=== PATIENT | male | born 1970 | race Caucasian/White ===

== ENCOUNTER 2024-03-04 02:16 | Emergency (ER) | payer MEDICAID, SELFPAY ==
--- NOTE | ~2024-03-04 | XR_ITS ---
Portable chest x-ray Comparison: None Clinical History: Chest pain Findings: There is retrocardiac consolidation. Right lung clear. Possible COPD. Cardiomediastinal s ilhouette is unremarkable. Bones and soft tissues are unremarkable. Impression: Left lower lobe pneumonia versus possibly atelectasis. Probable underlying COPD. Reviewed, dictated and finalized at [facility]. Impression: Left lower lobe pneumonia versus possibly atelectasis. Probable underlying COPD.
[2024-03-04 02:18] VITALS: PULSE 99; RESP 17; TEMP 36.6; O2SAT 99
--- NOTE | 2024-03-04 02:24 | ECG_ITS ---
Test Date: 2024-03-04 02:27:30 Measurements Intervals [place] Rate: 109 P: 93 VT: 172 QRS: 50 QRSD: 111 T: 67 QT: 364 QTc: 492 Interpretive Statements SINUS TACHYCARDIA MODERATE INTRAVENTRICULAR CONDUCTION DELAY [110+ ms QRS DURATION] PROLONGED QT INTERVAL ABNORMAL RHYTHM ECG No previous ECG available for comparison Electronically Signed On 03-04-2024 11:43:53 CDT by Cade Philip M.D.
[2024-03-04 02:28] VITALS: BP 118/78; PULSE 102; RESP 15; O2SAT 99
[2024-03-04] MEDS: SODIUM CHLORIDE 0.9% IV 1,000 ML 999 ML IV CONT (02:57)
[2024-03-04] MEDS: ONDANSETRON INJ 4 MG/2 ML VIAL IV PUSH (02:58)
[2024-03-04] MEDS: ASPIRIN 81 MG CHEWABLE TABLET 324 MG PO (02:58)
[2024-03-04 03:14] LABS: Basophils Absolute Auto 0.1 K/mm3 (0.0-0.1); Basophils Percent Auto 0.6 % (0.2-1.2); Eosinophils Percent Auto 0.2 % (0-4.4); Hematocrit 36.1 % (42.0-52.0); Hemoglobin 12.9 g/dL (14.0-18.0); Immature Granulocyte Absolute 0.04 K/mm3 (0.00-0.031); Immature Granulocyte Percent A 0.3 % (0-0.5); Lymphocytes Absolute Auto 0.53 K/mm3 (0.9-3.2); Lymphocytes Percent Auto 4.2 % (18.3-44.2); Mean Corpuscular HGB Conc 35.7 g/dl (32-36); Mean Corpuscular Hemoglobin 35.1 pg (26-34); Mean Corpuscular Volume 98.4 fl (80-100); Mean Platelet Volume 8.9 fl (7.4-10.4); Monocytes Absolute Auto 0.7 K/mm3 (0.1-0.6); Monocytes Percent Auto 5.7 % (2.6-8.5); Neutrophils Absolute Auto 11.2 K/mm3 (1.3-6.7); Platelet Count Result 221 k/mm3 (150-375); Red Blood Count 3.67 M/mm3 (4.6-6.20); Red Cell Distribution Width 13.4 % (11.5-14.5); White Blood Count 12.5 K/mm3 (4.5-10.0)
[2024-03-04 03:23] LABS: Lactic Acid Reflex 2.4 mmol/L (0.7-2.0)
[2024-03-04 03:24] LABS: Alanine Aminotransferase 19 U/L (6-50); Albumin Level 4.2 g/dL (3.5-5.1); Alkaline Phosphatase 93 U/L (38-126); Anion Gap 14 mmol/L (4-12); Aspartate Amino Transferase 50 U/L (17-59); Bilirubin,Total 1.6 mg/dL (0.2-1.3); Blood Urea Nitrogen 4 mg/dL (9-20); Calcium 8.8 mg/dL (8.4-10.2); Carbon Dioxide 18 mmol/L (22-30); Chloride 98 mmol/L (98-107); Estimated CRCL calculation 119 ml/min; Estimated Glomerular Filt Rate > 60; Glucose 105 mg/dL (65-110); Lipase 62 U/L (23-300); Magnesium 1.2 mg/dL (1.6-2.3); Potassium 3.3 mmol/L (3.4-5.0); Sodium 130 mmol/L (137-145)
[2024-03-04 03:28] LABS: Prothrombin Time 13.6 Seconds (11.1-14.7)
[2024-03-04 03:32] LABS: Ethanol 27 mg/dL (<10)
[2024-03-04] MEDS: THIAMINE 500 MG/NS 100 ML 500 MG/100 ML BAG 200 MG IVPB (03:32)
[2024-03-04 03:35] LABS: Troponin I < 0.012 ng/mL (0.000-0.034)
[2024-03-04] MEDS: POTASSIUM CHLORIDE 20 MEQ PACKET (FOR LIQUID) 40 MEQ PO (04:00)
[2024-03-04] MEDS: MAGNESIUM SULF 2 GM/WATER 50ML 2 GM/50 ML BAG IVPB (04:05)
--- NOTE | 2024-03-04 04:38 | PC.NURSE ---
RN sent urine at this time.
[2024-03-04 04:41] LABS: Add Urine Microscopic? YES; Appearance Urine Cloudy (Clear); Bacteria Urine None Seen /hpf; Bilirubin Urine Negative (Negative); Blood Urine Negative (Negative); Color Urine Yellow (Yellow); Glucose Urine UA Negative (Negative); Ketones Urine 1+ mg/dL (Negative); Leukocyte Esterase Ur Negative LEU/UL (Negative); Nitrate Urine Negative (Negative); Non Pathogenic Casts 0-2; Protein Urine Trace mg/dL (Negative); RBC Urine 0-2 /hpf (0-2); Specific Grav Ur 1.013 (1.001-1.035); Squamous Epithelial Cell Urine None Seen /hpf (Few); WBC Urine 0-5 /hpf (0-3); pH Urine 8.5 (5.0-9.0)
--- NOTE | 2024-03-04 04:53 | ED_ITS ---
HPI - General Adult General Chief complaint: Chest Pain Stated complaint: chest pain Time Seen by Provider: 03/04/24 02:41 History of Present Illness HPI narrative: Patient 54-year-old gentleman who presents emergency department with chief complaint of I feel like I am withdrawing from cocaine meth and alcohol the patient reports that he is homeless and couch surfs between individuals houses the patient states that he drinks multiple bottles of alcohol per day and uses cocaine and meth the patient reports he was arrested and [place] and then transported the [facility] police department who released him to come to our facility for possible alcohol withdrawal Related Data Allergies Allergy/AdvReac Type Severity Reaction Status Date / Time NKA Allergy Unknown Uncoded 10/26/02 13:08 RAW FLOUR- SNEEZING Allergy Unknown Uncoded 10/26/02 13:08 NA Allergy Uncoded 08/17/08 12:42 Review of Systems Review of Systems: A 10 system review of systems was completed on the patient and is negative except for what is stated in the HPI. Nursing and ancillary documentation was reviewed. Exam Narrative: GENERAL: Well-appearing, well-nourished, and in no acute distress. HEAD: Normocephalic, atraumatic. EYES: PERRLA and EOMI. ENT: Nares clear, no rhinorrhea or epistaxis. Mucous membranes moist. NECK: Supple. CHEST: Clear to auscultation. No respiratory distress. HEART: Regular rate and rhythm. No murmur heard. Normal peripheral pulses. ABDOMEN: Soft, nontender, nondistended, normal active bowel sounds. EXTREMITIES: Normal range of motion. No edema. SKIN: Warm, dry, no rash. NEURO: No focal deficits. Alert and oriented x3. PSYCH: Normal mood and affect. Course Vital Signs Vital signs: Vital Signs Temperature 36.6 C 03/04/24 02:18 Pulse Rate 99 03/04/24 02:18 Respiratory Rate 17 03/04/24 02:18 Pulse Oximetry 99 03/04/24 02:18 Oxygen Delivery Room Air 03/04/24 02:18 Temperature 36.6 C 03/04/24 02:18 Pulse Rate 102 H 03/04/24 02:28 Respiratory Rate 15 03/04/24 02:28 Blood Pressure 118/78 03/04/24 02:28 Pulse Oximetry 99 03/04/24 02:28 Oxygen Delivery Room Air 03/04/24 02:18 Medical Decision Making [facility] Narrative Medical decision making narrative: Differential diagnosis includes alcohol withdrawal, atypical chest pain, dysrhythmia The patient's blood alcohol level is 27. The patient is not legally intoxicated at this point and also not at a point of withdrawal the patient is not tachycardic and not tremulous. Laboratory studies showed a potassium of 3.3 and a magnesium of 1.2. Patient was given IV magnesium and p.o. potassium in the emergency department. Vital Signs Vital Signs: Vital Signs Temperature 36.6 C 03/04/24 02:18 Pulse Rate 99 03/04/24 02:18 Respiratory Rate 17 03/04/24 02:18 Pulse Oximetry 99 03/04/24 02:18 Oxygen Delivery Room Air 03/04/24 02:18 Temperature 36.6 C 03/04/24 02:18 Pulse Rate 102 H 03/04/24 02:28 Respiratory Rate 15 03/04/24 02:28 Blood Pressure 118/78 03/04/24 02:28 Pulse Oximetry 99 03/04/24 02:28 Oxygen Delivery Room Air 03/04/24 02:18 Lab Data 03/04/24 03:02 03/04/24 03:02 Labs: Lab Results 03/04/24 03/04/24 03/04/24 Range/Units 03:02 04:33 05:37 WBC 12.5 H (4.5-10.0) K/mm3 RBC 3.67 L (4.6-6.20) M/mm3 Hgb 12.9 L (14.0-18.0) g/dL Hct 36.1 L (42.0-52.0) % MCV 98.4 (80-100) fl MCH 35.1 H (26-34) pg MCHC 35.7 (32-36) g/dl RDW 13.4 (11.5-14.5) % Plt Count 221 (150-375) k/mm3 MPV 8.9 (7.4-10.4) fl Immature Gran % (Auto) 0.3 (0-0.5) % Neut % (Auto) 89.0 H (45.5-73.1) % Lymph % (Auto) 4.2 L (18.3-44.2) % [place] % (Auto) 5.7 (2.6-8.5) % Eos % (Auto) 0.2 (0-4.4) % Baso % (Auto) 0.6 (0.2-1.2) % Lymph # (Auto) 0.53 L (0.9-3.2) K/mm3 [place] # (Auto) 0.7 H (0.1-0.6) K/mm3 Eos # (Auto) 0.0 (0-0.3) K/mm3 Baso # (Auto) 0.1 (0.0-0.1) K/mm3 Abs Immat Gran (auto) 0.04 H (0.00-0.031) K/mm3 Absolute Neuts (auto) 11.2 H (1.3-6.7) K/mm3 Absolute Nucleated RBC 0.000 (0.0-0.012) K/mm3 Nucleated RBC % 0.0 (0.0-0.2) % PT 13.6 (11.1-14.7) Seconds INR 1.0 Sodium 130 L (137-145) mmol/L Potassium 3.3 L (3.4-5.0) mmol/L Chloride 98 (98-107) mmol/L Carbon Dioxide 18 L (22-30) mmol/L Anion Gap 14 H (4-12) mmol/L BUN 4 L (9-20) mg/dL Creatinine 0.60 L (0.7-1.3) mg/dL Estim Creat Clear Calc 119 ml/min Estimated GFR > 60 (59 - ) Glucose 105 (65-110) mg/dL Lactic Acid 2.4 H (0.7-2.0) mmol/L Calcium 8.8 (8.4-10.2) mg/dL Magnesium 1.2 L (1.6-2.3) mg/dL Total Bilirubin 1.6 H (0.2-1.3) mg/dL AST 50 (17-59) U/L ALT 19 (6-50) U/L Alkaline Phosphatase 93 (38-126) U/L Troponin I < 0.012 < 0.012 (0.000-0.034) ng/mL Total Protein 8.0 (6.3-8.2) g/dL Albumin 4.2 (3.5-5.1) g/dL Lipase 62 (23-300) U/L Urine Color Yellow (Yellow) Urine Appearance Cloudy H (Clear) Urine pH 8.5 (5.0-9.0) Ur Specific [place] 1.013 (1.001-1.035) Urine Protein Trace (Negative) mg/dL Urine Glucose (UA) Negative (Negative) mg/dL Urine Ketones 1+ H (Negative) mg/dL Ur Blood (Man) Negative (Negative) Urine Nitrate Negative (Negative) Urine Bilirubin Negative (Negative) Urine Urobilinogen 1.0 (<2.0) mg/dL Leukocyte Esterase Rfl Negative (Negative) FAISAL/UL Urine RBC 0-2 (0-2) /hpf Urine WBC 0-5 (0-3) /hpf Ur Squamous Epith Cells None seen (Few) /hpf Urine Bacteria None seen /hpf Urine Casts 0-2 Ethyl Alcohol 27 (<10) mg/dL Discharge Plan Discharge Clinical Impression: Alcohol abuse, Atypical chest pain, Polysubstance abuse, Hypomagnesemia, Acute hypokalemia Patient Disposition: Home, Self-Care Condition: Stable Instructions: Antibiotic Form, Chest Pain (ED), Hypokalemia (ED), Abuse of Alcohol (ED), Polysubstance Use Disorder (ED), Hypomagnesemia (ED) Prescriptions: New potassium chloride 20 mEq tablet extended release 20 meq PO BID Qty: 10 0RF magnesium oxide 500 mg capsule 500 mg PO BID Qty: 20 0RF Follow-up/Referrals: Jacqueline,Piyush Padilla MD [Primary Care Provider] - Time of Disposition: 06:13
[2024-03-04 06:04] LABS: Troponin I < 0.012 ng/mL (0.000-0.034)
[2024-03-04 06:11] LABS: Reflex Lactic Acid Yes or No Add Lactic
[2024-03-04 06:42] VITALS: BP 132/84; PULSE 84; RESP 20; O2SAT 98
== END 2024-03-04 06:48 | disposition home or self-care (01) ==
PROVIDERS: Emergency Provider Emergency Medicine; PCP Orthopaedic Surgery
DX: F10.10 Alcohol abuse, uncomplicated (principal); F14.10 Cocaine abuse, uncomplicated; F15.10 Other stimulant abuse, uncomplicated; Y90.1 Blood alcohol level of 20-39 mg/100 ml; R07.89 Other chest pain; E83.42 Hypomagnesemia; E87.6 Hypokalemia; Z59.01 Sheltered homelessness
CPT/HCPCS: 36415; 71045; 80053; 81001; 82077; 83605; 83690; 83735; 84484; 85025; 85610; 93005; 96365; 96366; 96367; 96375; 99284; A9270; J2405; J3411; J3475; J7030